=== PATIENT | female | born 1970 | race African-American/Black ===

== ENCOUNTER 2018-08-15 21:10 | Emergency (ER) | payer BC, MEDICAID ==
[~2018-08-15] VITALS: Ht 170.2 cm; Wt 83.9 kg
[2018-08-15 21:29] VITALS: Ht 170.2 cm; Wt 83.9 kg
[2018-08-15 23:23] LABS: BASOPHIL % 0.6 % (0-2); PLATELET COUNT 199 x10^3mcL (130-400)
[2018-08-15 23:30] LABS: CALCIUM 8.2 mg/dL (8.5-10.1); CARBON DIOXIDE 26.4 mmol/L (21-32); CHLORIDE SERUM 106 mmol/L (98-107); CREATININE SERUM 0.8 mg/dL (0.6-1.0); GFR1 > 60 mL/min; GLUCOSE SERUM 100 mg/dL (74-106); POTASSIUM SERUM 4.2 mmol/L (3.5-5.1); SODIUM SERUM 138 mmol/L (136-145)
[2018-08-15 23:32] LABS: RED CELL DISTRIBUTION WIDTH 14.6 % (11.5-14.5)
[2018-08-16 00:09] VITALS: BP 114/74
== END 2018-08-16 00:09 | disposition home or self-care (01) ==
LOC: ED 21:10
PROVIDERS: Emergency Medicine
DX: G43.909 Migraine, unspecified, not intractable, without status migrainosus (principal); H92.03 Otalgia, bilateral; Z88.0 Allergy status to penicillin; Z88.6 Allergy status to analgesic agent; Z88.5 Allergy status to narcotic agent; Z88.8 Allergy status to other drugs, medicaments and biological substances; Z91.040 Latex allergy status
CPT/HCPCS: 36415; Q0162